=== PATIENT | female | born 1960 | race Caucasian/White ===

== ENCOUNTER 2016-09-28 12:14 | Emergency (ER) | payer OTHER, BC ==
[~2016-09-28] VITALS: Ht 165.1 cm; Wt 82.0 kg
[2016-09-28 13:40] VITALS: BP 162/102
[2016-09-28] MEDS ORDERED: LISINOPRIL10 MG PO (15:22)
[2016-09-28] MEDS ORDERED: ERGOCALCIF50000 UNIT PO (15:23)
[2016-09-28] MEDS ORDERED: TRAMADOL HCL50 MG PO (15:50)
== END 2016-09-28 16:33 | disposition home or self-care (01) ==
LOC: EME 12:14
PROC: 2W3DX1Z Immobilization of Left Lower Arm using Splint (ICD-10-PCS; principal; 2016-09-28)
DX: S63.502A Unspecified sprain of left wrist, initial encounter (principal); V49.40XA Driver injured in collision with unspecified motor vehicles in traffic accident, initial encounter; I10 Essential (primary) hypertension
CPT/HCPCS: 73110; 99281; 99283